=== PATIENT | female | born 1945 | race Hispanic/Latino ===

== ENCOUNTER 2018-12-07 08:22 | Outpatient (CLI) | payer MEDICARE ==
--- NOTE | 2018-12-07 10:42 | MRI ---
NONCONTRAST ENHANCED MRI LUMBAR SPINE: DATE: 12/07/2018. COMPARISON: Comparison is made to previous exam from 11/29/2014. FINDINGS: Multiplanar, multisequence noncontrast-enhanced MRI images lumbar spine obtained. 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 There is no significant evidence of abnormality seen in the T12-L1, L1-2, and L2-3 levels. L3-4: There is mild disk desiccation and mild facet hypertrophy. This results in mild central and l ateral recess stenosis. The neural foramen are patent. L4-5: There is grade I anterolisthesis of L4 on L5. There is a broad-based disk bulge with facet hy pertrophy and ligamentum flavum hypertrophy. This results in moderate to severe central and lateral recess stenosis. There is mild neural foraminal narrowing seen. MRI appearance has not significantl y changed since the previous exam. No evidence of recurrent disk herniation seen. L5-S1: Disk desiccation is seen. There is a broad-based disk bulge with severe facet and ligamentum flavum hypertrophy resulting in a moderate degree of L5-S1 central and lateral recess stenosis. Mil d neural foraminal narrowing is seen. MRI appearance has not significantly changed since the previous comparison exam. IMPRESSION: Continued L4-5 disk degenerative changes and anterolisthesis likely due to facet and ligamentum flavu m hypertrophy resulting in the anterolisthesis of L4 on L5. MRI appearance is stable. POS: [facility]
== END 2018-12-07 08:23 | disposition home or self-care (01) ==
LOC: BICMRI 08:22
PROVIDERS: ATTEND Specialist
DX: M47.26 Other spondylosis with radiculopathy, lumbar region (principal); M43.16 Spondylolisthesis, lumbar region
CPT/HCPCS: 72148

== ENCOUNTER 2021-01-12 11:46 | Emergency (ER) | payer MEDICARE ==
[2021-01-12] MEDS ORDERED: Boostrix 0.5 ML (Tdap) VIAL ONE (13:09)
[2021-01-12] MEDS ORDERED: Bacitracin 1 PK ONE (13:10)
== END 2021-01-12 13:25 | disposition home or self-care (01) ==
LOC: ERS 11:46
DX: S51.012A Laceration without foreign body of left elbow, initial encounter (principal); Z23 Encounter for immunization; Y04.8XXA Assault by other bodily force, initial encounter; E11.9 Type 2 diabetes mellitus without complications; Z79.84 Long term (current) use of oral hypoglycemic drugs; F17.210 Nicotine dependence, cigarettes, uncomplicated
CPT/HCPCS: 90471; 90715

== ENCOUNTER 2021-08-13 10:23 | Outpatient (CLI) | payer MEDICARE | END 2021-08-13 10:24 | disposition home or self-care (01) | LOC: BICRAD 10:23 | PROVIDERS: ATTEND Family Medicine | DX: R06.02 Shortness of breath (principal) | CPT/HCPCS: 71046 ==

== ENCOUNTER 2021-08-18 10:22 | Outpatient (CLI) | payer MEDICARE | END 2021-08-18 10:23 | disposition home or self-care (01) | LOC: EKG 10:22 | PROVIDERS: ATTEND Family Medicine | DX: Z01.818 Encounter for other preprocedural examination (principal) | CPT/HCPCS: 93005; 93010 ==

== ENCOUNTER 2021-12-18 09:37 | Outpatient (CLI) | payer MEDICARE | END 2021-12-18 09:38 | disposition home or self-care (01) | LOC: BICULT 09:37 | PROVIDERS: ATTEND Family Medicine | DX: R10.9 Unspecified abdominal pain (principal); Z90.49 Acquired absence of other specified parts of digestive tract | CPT/HCPCS: 76700 ==